=== PATIENT | female | born 1930 | race Caucasian/White ===

== ENCOUNTER → 2018-04-06 | Outpatient (CLI) | payer MEDICARE, OTHER | LOC: M ADAMS 11:27 | DX: M25.551 Pain in right hip (principal) | CPT/HCPCS: 73502 ==

== ENCOUNTER 2018-11-26 02:57 | Emergency (ER) | payer MEDICARE, OTHER ==
[2018-11-26 03:29] LABS: BASO % 0.3 % (0.0-1.0); EOS # 0.1 10^3/uL (0.0-0.50); EOS % 1.6 % (0.0-3.0); HEMATOCRIT 36.6 % (36.0-47.0); HEMOGLOBIN 11.6 g/dl (12.0-15.5); LYMPH # 1.9 10^3/uL (1.5-4.5); LYMPH % 27.4 % (24.0-44.0); MEAN CORPUSCULAR HEMOGLOBIN 29.8 pg (27.0-33.0); MEAN CORPUSCULAR HGB CONC 31.7 g/dl (32.0-36.5); MEAN CORPUSCULAR VOLUME 94.1 fl (80.0-96.0); MONO # 0.7 10^3/uL (0.0-0.8); MONO % 10.2 % (0.0-5.0); NEUTROPHILS # 4.3 10^3/uL (1.8-7.7); NEUTROPHILS % 60.2 % (36.0-66.0); PLATELET COUNT, AUTOMATED 186 10^3/uL (150-450); RED BLOOD COUNT 3.89 10^6/uL (4.00-5.40); WHITE BLOOD COUNT 7.1 10^3/uL (4.0-10.0)
[2018-11-26 04:23] LABS: BLOOD UREA NITROGEN 33 MG/DL (7-18); CALCIUM LEVEL 9.2 MG/DL (8.8-10.2); CARBON DIOXIDE LEVEL 27 MEQ/L (21-32); CHLORIDE LEVEL 109 MEQ/L (98-107); CPK CREATINE PHOSPHOKINASE 101 U/L (26-192); CREATININE FOR GFR 1.06 MG/DL (0.55-1.30); GLOMERULAR FILTRATION RATE 52.2 (>32); GLUCOSE, FASTING 94 MG/DL (70-100); MB/CK RELATIVE INDEX 1.09 (< OR =4); POTASSIUM SERUM 4.6 MEQ/L (3.5-5.1); SODIUM LEVEL 141 MEQ/L (136-145); TROPONIN I < 0.02 NG/ML (< 0.10)
[2018-11-26 04:57] LABS: NT-PRO BNP 286 PG/ML (<450)
--- NOTE | 2018-11-26 09:02 | REP ---
Chest one-view HISTORY: Chest pain Comparison: 07/24/2016 A calcified granuloma are present in the lungs. The cardiac silhouette is enlarged. The pulmonary vasculature is normal in appearance. Impression: 1. Old granulomatous disease. 2. Cardiomegaly. Electronically Signed by Trent Robin MD 11/26/2018 08:54 A
[2018-11-26 09:45] LABS: CK-MB VALUE MASS < 1.0 NG/ML (<3.6); CPK CREATINE PHOSPHOKINASE 81 U/L (26-192); MB/CK RELATIVE INDEX 1.23 (< OR =4); TROPONIN I < 0.02 NG/ML (< 0.10)
[2018-11-26 10:39] VITALS: BP 170/77
--- NOTE | 2018-11-26 13:09 | ECGEPIP ---
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
--- NOTE | 2018-11-26 13:10 | ECGEPIP ---
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
== END 2018-11-26 10:50 | disposition home or self-care (01) ==
LOC: EDBD 02:57 → M ED 02:57
DX: R07.9 Chest pain, unspecified (principal); R06.02 Shortness of breath; I51.9 Heart disease, unspecified; I25.10 Atherosclerotic heart disease of native coronary artery without angina pectoris; I95.9 Hypotension, unspecified

== ENCOUNTER 2019-03-24 23:39 | Emergency (ER) | payer MEDICARE, OTHER ==
[~2019-03-24] VITALS: Ht 152.4 cm; Wt 46.8 kg
[2019-03-25] MEDS ORDERED: no home meds (00:32)
[2019-03-25 00:37] LABS: BASO % 0.5 % (0.0-1.0); EOS # 0.1 10^3/uL (0.0-0.50); EOS % 1.1 % (0.0-3.0); HEMATOCRIT 33.2 % (36.0-47.0); HEMOGLOBIN 10.7 g/dl (12.0-15.5); LYMPH # 1.3 10^3/uL (1.5-4.5); LYMPH % 23.3 % (24.0-44.0); MEAN CORPUSCULAR HEMOGLOBIN 31.2 pg (27.0-33.0); MEAN CORPUSCULAR HGB CONC 32.2 g/dl (32.0-36.5); MEAN CORPUSCULAR VOLUME 96.8 fl (80.0-96.0); MONO # 0.5 10^3/uL (0.0-0.8); MONO % 8.8 % (0.0-5.0); NEUTROPHILS # 3.8 10^3/uL (1.8-7.7); NEUTROPHILS % 66.1 % (36.0-66.0); PLATELET COUNT, AUTOMATED 157 10^3/uL (150-450); RED BLOOD COUNT 3.43 10^6/uL (4.00-5.40); WHITE BLOOD COUNT 5.7 10^3/uL (4.0-10.0)
[2019-03-25] MEDS ORDERED: ONDANSETRON 4MG/2ML VIAL (J2405) IV ONE (00:45)
[2019-03-25] MEDS ORDERED: ACETAMINOPHEN TAB 650MG DOSE (2X325MG) PO ONE (00:45)
[2019-03-25 00:54] LABS: INR 1.07; PROTHROMBIN TIME 13.6 SECONDS (11.8-14.0)
[2019-03-25 00:55] LABS: PARTIAL THROMBOPLASTIN TIME 26.3 SECONDS (25.0-38.4)
[2019-03-25 01:08] LABS: BLOOD UREA NITROGEN 39 MG/DL (7-18); CALCIUM LEVEL 9.1 MG/DL (8.8-10.2); CARBON DIOXIDE LEVEL 27 MEQ/L (21-32); CHLORIDE LEVEL 109 MEQ/L (98-107); CK-MB VALUE MASS < 1.0 NG/ML (<3.6); CPK CREATINE PHOSPHOKINASE 82 U/L (26-192); CREATININE FOR GFR 1.43 MG/DL (0.55-1.30); GLUCOSE, FASTING 99 MG/DL (70-100); MB/CK RELATIVE INDEX 1.22 (< OR =4); POTASSIUM SERUM 4.6 MEQ/L (3.5-5.1); SODIUM LEVEL 141 MEQ/L (136-145); TROPONIN I < 0.02 NG/ML (< 0.10)
--- NOTE | 2019-03-25 01:12 | REPVR ---
EXAM: CT Head Without Contrast EXAM DATE/TIME: 03/25/2019 12:43 AM CLINICAL HISTORY: 88 years old, female; Injury or trauma; Fall; Initial encounter; Concussion / head injury TECHNIQUE: Imaging protocol: Computed tomography images of the head without contrast. Radiation optimization: All CT scans at this facility use at least one of these dose optimization techniques: automated exposure control; mA and/or kV adjustment per patient size (includes targeted exams where dose is matched to clinical indication); or iterative reconstruction. COMPARISON: CT Head without contrast 07/24/2016 1:35 PM FINDINGS: Brain: Patchy areas of hypoattenuation in the periventricular and subcortical white matter, consistent with chronic small vessel ischemic disease. No CT evidence of acute intracranial hemorrhage or acute territorial infarction. No significant mass effect or midline shift. Basal cisterns patent. Ventricles: Prominence of the cortical sulci, cisterns and ventricular system, consistent with cerebral and cerebellar volume loss. Bones/joints: No acute osseous abnormality. Sinuses: Minimal ethmoid mucosal thickening. Mastoid air cells: Grossly unremarkable. Soft tissues: Grossly unremarkable. IMPRESSION: 1. No CT evidence of acute intracranial pathology. 2. Additional findings, as above. Electronically signed by: Dakota Hernandez On 03/25/2019 01:11:41 AM
[2019-03-25] MEDS ORDERED: NS 500 ML IV ONE (03:00)
[2019-03-25 07:12] LABS: CK-MB VALUE MASS < 1.0 NG/ML (<3.6); CPK CREATINE PHOSPHOKINASE 64 U/L (26-192); MB/CK RELATIVE INDEX 1.56 (< OR =4); TROPONIN I 0.02 NG/ML (< 0.10)
--- NOTE | 2019-03-25 07:34 | REP ---
Portable chest, 12:53 a.m., single AP view with the patient sitting: Comparison is 07/24/2016. There are multiple small lung nodules bilaterally, unchanged, likely granulomas. There are no acute infiltrates or pleural effusions. Cardiac size is upper normal. The stephanie, mediastinum, skeletal structures are unremarkable. Impression: There are no acute cardiopulmonary findings. There are stable small lung nodules, likely granulomas. Electronically Signed by Kadeem Amezquita MD 03/25/2019 07:26 A
[2019-03-25 08:19] VITALS: BP 179/74
--- NOTE | 2019-03-25 13:40 | ECGEPIP ---
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
== END 2019-03-25 09:59 | disposition home or self-care (01) ==
LOC: EDBD 23:39 → M ED 23:39
DX: R07.9 Chest pain, unspecified (principal); R91.8 Other nonspecific abnormal finding of lung field
CPT/HCPCS: 36415; 70450; 71045; 80048; 81001; 82550; 82553; 84443; 84484; 85025; 85610; 85730; 93005; 93041; 94760; 96361; 96374; 99285; J2405

== ENCOUNTER → 2019-04-19 | Outpatient (REF) | payer MEDICARE, OTHER ==
[~2019-04-19] MED LIST: no home meds
[2019-04-19 15:18] LABS: BASO % 0.4 % (0.0-1.0); EOS % 0.4 % (0.0-3.0); HEMATOCRIT 36.8 % (36.0-47.0); HEMOGLOBIN 11.5 g/dl (12.0-15.5); LYMPH % 17.4 % (24.0-44.0); MEAN CORPUSCULAR HEMOGLOBIN 30.7 pg (27.0-33.0); MEAN CORPUSCULAR HGB CONC 31.3 g/dl (32.0-36.5); MEAN CORPUSCULAR VOLUME 98.1 fl (80.0-96.0); MONO # 0.5 10^3/uL (0.0-0.8); MONO % 8.3 % (0.0-5.0); NEUTROPHILS # 4.2 10^3/uL (1.5-8.5); NEUTROPHILS % 73.1 % (36.0-66.0); PLATELET COUNT, AUTOMATED 163 10^3/uL (150-450); RED BLOOD COUNT 3.75 10^6/uL (4.00-5.40); WHITE BLOOD COUNT 5.7 10^3/uL (4.0-10.0)
[2019-04-19 15:53] LABS: BILIRUBIN,TOTAL 0.5 MG/DL (0.2-1.0); CALCIUM LEVEL 9.7 MG/DL (8.8-10.2); CREATININE FOR GFR 1.64 MG/DL (0.55-1.30); GLOMERULAR FILTRATION RATE 31.5 (>32); PERCENT SATURATION 29.7 % (13.2-45.0); POTASSIUM SERUM 4.5 MEQ/L (3.5-5.1); TOTAL PROTEIN 7.2 GM/DL (6.4-8.2)
== END ==
LOC: M LABDRWAD 14:32
PROVIDERS: ATTEND Physician Assistant
DX: R42 Dizziness and giddiness (principal)

== ENCOUNTER 2019-05-26 08:12 | Inpatient (IN) | payer MEDICARE, OTHER ==
[~2019-05-26] VITALS: Ht 157.5 cm; Wt 45.5 kg
[2019-05-26] MEDS ORDERED: NS 500 ML IV ONE (08:30)
--- NOTE | 2019-05-26 08:54 | REP ---
Single view chest: 05/26/2019. Indication: Abdominal pain. Comparison: 03/25/2019. Findings: Numerous bilateral granulomata are noted. No pulmonary air space consolidations are present. There is no pleural effusion or pneumothorax. The cardiac silhouette is unremarkable. Impression: No acute cardiopulmonary process. Electronically Signed by Basil Castellon DO 05/26/2019 08:45 A
[2019-05-26 09:26] LABS: BASO % 0.5 % (0.0-1.0); EOS % 0.4 % (0.0-3.0); HEMATOCRIT 34.3 % (36.0-47.0); LYMPH # 0.8 10^3/uL (1.5-5.0); LYMPH % 13.7 % (24.0-44.0); MEAN CORPUSCULAR HGB CONC 32.1 g/dl (32.0-36.5); MEAN CORPUSCULAR VOLUME 96.6 fl (80.0-96.0); MONO # 0.4 10^3/uL (0.0-0.8); MONO % 7.8 % (0.0-5.0); NEUTROPHILS # 4.3 10^3/uL (1.5-8.5); NEUTROPHILS % 77.4 % (36.0-66.0); PLATELET COUNT, AUTOMATED 182 10^3/uL (150-450); RED BLOOD COUNT 3.55 10^6/uL (4.00-5.40); WHITE BLOOD COUNT 5.6 10^3/uL (4.0-10.0)
[2019-05-26 09:45] LABS: ALBUMIN 3.4 GM/DL (3.2-5.2); ALT/SGPT 16 U/L (12-78); AMYLASE 104 U/L (25-115); BILIRUBIN,DIRECT 0.1 MG/DL (0.0-0.2); BILIRUBIN,TOTAL 0.5 MG/DL (0.2-1.0); BLOOD UREA NITROGEN 27 MG/DL (7-18); CALCIUM LEVEL 9.2 MG/DL (8.8-10.2); CARBON DIOXIDE LEVEL 29 MEQ/L (21-32); CHLORIDE LEVEL 110 MEQ/L (98-107); CK-MB VALUE MASS < 1.0 NG/ML (<3.6); CPK CREATINE PHOSPHOKINASE 68 U/L (26-192); CREATININE FOR GFR 1.38 MG/DL (0.55-1.30); GLOMERULAR FILTRATION RATE 38.5 (>32); GLUCOSE, FASTING 90 MG/DL (70-100); LIPASE 163 U/L (73-393); MB/CK RELATIVE INDEX 1.47 (< OR =4); POTASSIUM SERUM 3.8 MEQ/L (3.5-5.1); SODIUM LEVEL 144 MEQ/L (136-145); TROPONIN I < 0.02 NG/ML (< 0.10)
[2019-05-26] MEDS ORDERED: ISOVUE-370 76% 100ML VIAL (Q9967) As Ordered ONE (09:57)
[2019-05-26] MEDS ORDERED: LEVO50TA5 PO (09:59)
--- NOTE | 2019-05-26 10:43 | REP ---
CT brain: 05/26/2019. Indication: Head trauma. Comparison: 03/25/2019. Technique: Unenhanced axial CT images of the brain were obtained from skull base to vertex. Findings: There is no acute intracranial hemorrhage, acute cortical infarction, mass effect, hydrocephalus or acute calvarial fracture. Age-related volume loss is noted diffusely. There are a few small patchy areas of hypoattenuation throughout the white matter of the cerebral hemispheres most consistent with chronic small vessel disease. Impression: No acute intracranial process. Electronically Signed by Basil Castellon DO 05/26/2019 10:34 A
--- NOTE | 2019-05-26 10:51 | REP ---
CT cervical spine: 05/26/2019. Indication: Cervical spine trauma. Comparison: None. Technique: Axial unenhanced CT images of the cervical spine were obtained with coronal and sagittal reconstructions provided. Findings: Slightly exaggerated lordosis is noted. There is no significant disc space widening. There is no acute fracture, subluxation or dislocation. No hemorrhage or additional significant acute post traumatic sequelae are detected within the spinal canal. There are no concerning erosive lesions of the visualized cervical spine. There are a few small pulmonary nodules within the visualized apices at least one of which is calcified and possibly represent granulomas. Correlation with chest CT may be helpful. Impression: No acute post traumatic osseous injuries of the cervical spine. Electronically Signed by Basil Castellon DO 05/26/2019 10:43 A
--- NOTE | 2019-05-26 11:05 | REP ---
CT ABDOMEN AND PELVIS WITH IV CONTRAST: TECHNIQUE: Axial contrast enhanced images from the lung bases to the pubic symphysis using 100 mL Isovue 370 intravenous contrast material with multiplanar reformations. Visualized lung bases demonstrate calcified granulomas. Liver demonstrates multiple cysts. The largest is in the right dome measuring approximately 6 cm in maximum diameter. Common bile duct is dilated up to 11 mm. Gallbladder is grossly unremarkable. Spleen is unremarkable as are the adrenal glands and pancreas. Extrarenal pelvis is seen bilaterally with a posterior left renal cyst versus dilated calyx with overlying cortical thinning having a diameter of about 3 cm. There is no abdomen aortic aneurysm with moderate atherosclerotic calcifications. There is no adenopathy. There is no free air or free fluid. There is no bowel wall thickening. There is no pelvic mass. The urinary bladder is grossly unremarkable. Visualized osseous structures appear intact with diffuse degenerative changes of the spine. IMPRESSION: No acute abnormality is detected. Multiple innumerable liver cysts. Calcified granulomas in each lung base. Prominent common bile duct 11 mm in diameter. I cannot exclude stricture at the distal end of the common bile duct. Electronically Signed by Kadeem Aponte MD 05/28/2019 12:42 A
[2019-05-26] MEDS ORDERED: VESI5TAB2 PO (12:20)
[2019-05-26] MEDS ORDERED: amLODIPine 5 MG TAB PO ONE (13:00)
--- NOTE | 2019-05-26 13:18 | HPEPDOC ---
General Date of Admission 05/26/2019 Date of Service: May 26, 2019 Chief Complaint The patient is a 88-year-old female Who presented to emergency room with complaint of abdominal pain associated with nausea and vomiting. History of Present Illness Patient is an 88-year-old female with a past medical history of dementia, CKD 3, and overactive bladder and recent dental problems, was pre sented to the emergency room after experiencing a one day history of nausea and vomiting. Patient reported that yesterday she began to experience episodes of nausea and vomiting associated with diffuse abdominal discomfort. Patient lives alone and is a poor historian. Patient son was present at the bedside was reported that he went to go help after she had gone to a neighbor for assistance. He found that she had vomited twice this morning around 6:30 AM. . He described the vomitus without having any blood. Currently patient denies any headache or any active nausea or vomiting. Denies chest pain, shortness of breath, palpitations, does not experience any active abdominal pain. Denies once patient, diarrhea, or urinary discomfort. Patient does follow with an outpatient provider who has suggested that the patient should require 24. 7 supervision and possible intermediate placement. Patient has reported that she has experience a weight loss of approximately 8 pounds over a few months and has Home Medications Scheduled Solifenacin Succinate (Vesicare) 5 Mg Tablet, 5 MG PO DAILY, (Reported) Allergies Coded Allergies: No Known Allergies (Unverified , 03/25/19) Past Medical History Medical History Dementia, CKD3, and overactive bladder and recent dental problems (Follows w/ Dr. Church, Dr. Evans, Dr. 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 Review of Systems Other systems 10 point review of systems complete, all negative otherwise stated in HPI Vital Signs - Vitals: BP 187/86, HR 67, RR 18, Sat 99%RA, Temp 99.3F - General: Lying in bed, No acute distress, Speaking in full sentences, Awake / Alert - HEENT: NC, AT, PERRLA, EOMI - CVS: RRR, +S1S2 - Lungs: Fair air entry bilaterally, No appreciable wheezing / rales / rhonchi - Abdomen: Soft, Non-distended, Non-tender - Extremities: No lower extremity edema, No calf tenderness - Neuro: No focal motor or sensory deficit - Skin: No visible rashes Laboratory Data Labs 24H Laboratory Tests 2 05/26/19 08:28: Urine Color YELLOW, Urine Appearance CLEAR, Urine pH 7.0, Urine Specific [place] 1.018, Urine Protein NEGATIVE, Urine Glucose (UA) NEGATIVE, Urine Ketones TRACEH, Urine Blood NEGATIVE, Urine Nitrite NEGATIVE, Urine Bilirubin NEGATIVE, Urine Urobilinogen 0.2, Urine Leukocyte Esterase NEGATIVE, Urine WBC (Auto) 0, Urine RBC (Auto) 1, Urine Hyaline Casts (Auto) 0, Urine Bacteria (Auto) NEGATIVE, Urine Squamous Epithelial Cells 0, Urine Sperm (Auto) 05/26/19 09:11: Immature Granulocyte % (Auto) 0.2, Neutrophils (%) (Auto) 77.4H, Lymphocytes (%) (Auto) 13.7L, Monocytes (%) (Auto) 7.8H, Eosinophils (%) (Auto) 0.4, Basophils (%) (Auto) 0.5, Neutrophils # (Auto) 4.3, Lymphocytes # (Auto) 0.8L, Monocytes # (Auto) 0.4, Eosinophils # (Auto) 0.0, Basophils # (Auto) 0.0, Nucleated Red Blood Cells % (auto) 0.0, Anion Gap 5L, Glomerular Filtration Rate 38.5, Lactic Acid Level 1.0, Calcium Level 9.2, Total Bilirubin 0.5, Direct Bilirubin 0.1, Aspartate Amino Transf (AST/SGOT) 15, Alanine Aminotransferase (ALT/SGPT) 16, Alkaline Phosphatase 18L, Total Creatine Kinase 68, Creatine Kinase MB < 1.0, Creatine Kinase MB Relative Index 1.47, Troponin I < 0.02, Total Protein 7.0, Albumin 3.4, Albumin/Globulin Ratio 0.94L, Amylase Level 104, Lipase 163 CBC/BMP Laboratory Tests 05/26/19 09:11 Microbiology Microbiology 05/26/19 Blood Culture, Received Pending 05/26/19 Respiratory Virus Panel (PCR) (ROBYN) - Final, Complete 05/26/19 Blood Culture, Received Pending Plan / VTE VTE Prophylaxis Ordered?: Yes Plan Plan Abdominal pain / Nausea / Vomiting - possibly 2/2 gastroenteritis - Currently patient has reported resolution of her abdominal pain and nausea and vomiting - Physical remains benign; hemodynamically stable and afebrile - No leukocytosis; Normal Amylase / Lipase - CT abdomen / pelvis 05/26: No acute abnormality is detected. Multiple innumerable liver cysts. Calcified granulomas in each lung base. Prominent common bile duct 11 mm in diameter. I cannot exclude stricture at the distal end of the common bile duct. - Will check US abdomen - c/w Supportive care for now Liver cysts - See above Reported falls at home - Patient and family have reported that she has fallen several times while at home - Currently patient denies any significant pain - CT head 05/26: No acute intracranial process. - CT cervical spine 05/26: No acute post traumatic osseous injuries of the cervical spine. - c/w Tylenol PRN - Patient will work with PT / OT Hypertensive urgency - Patient has reported that at home her blood pressures typically on the lower side of normal - Clinical impression emergency room was found to be in systolics of 180 - Patient remains a symptomatic - Will start Amlodipine Placement - Patient has a history of dementia that appears to be progressive - Patient describes that at home she has been wandering and feels that she is unable to care for herself while at home - Will get PFS consultation for likely placement CKD3 - Creatinine appears to be at baseline Overactive bladder - c/w Solifenacin Recent dental problems - Follows w/ Dr. Church, Dr. Evans, Dr. Scott - Will have outpatient follow-up DVT prophylaxis - Will start Heparin JOSE ANTONIO MOBLEY MD May 26, 2019 13:18
[2019-05-26] MEDS: HEPARIN SOD (PORCINE) 5000 UNITS/ML VIAL SC SCH ×2 (16:00→21:35)
[2019-05-26 16:15] VITALS: BP 154/79
--- NOTE | 2019-05-26 17:23 | ECGEPIP ---
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
--- NOTE | 2019-05-26 17:31 | REP ---
HISTORY: Liver cyst. Multiple ultrasonographic images of the liver show multiple anechoic structures of various sizes. The largest on the left is 2.8 x 1.8 x 2.5 cm and the largest on the right is 2.7 x 3.7 x 5.9 cm, all exhibiting posterior wall enhancement and increased through transmission. There is no intrahepatic ductal dilatation. The common bile duct measures 11 mm. The gallbladder is unremarkable in appearance. The spleen has a maximal dimension of 6.6 cm and tiny echogenic foci are seen within the spleen consistent with chronic granulomatous changes. There are no perisplenic abnormalities. The imaged portion of the pancreas is unremarkable. The right kidney measures 10.3 x 3.7 x 3.6 cm and is within normal limits. There is a probable extrarenal pelvis. The left kidney measures 9.4 x 3.3 x 4.2 cm. In the interpolar region of the left kidney there is a 2 x 2.4 x 1.7 cm sized echogenic lesion which is not consistent with a completely simple cyst. There is no free fluid in the abdomen. IMPRESSION: 1. Hepatic cysts. 2. Dilatation of the common bile duct. 3. 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 4. Lesion in the left kidney which is not ultrasonographically consistent with a simple cyst. Previous CT scan of 05/26/2019 showed the aforementioned abnormalities and the left renal cystic lesion had density Hounsfield unit readings too high to be a simple cyst. Urological consultation is recommended since neoplastic change cannot be ruled out. Electronically Signed by Praveen Flores DO 05/27/2019 11:48 A
[2019-05-26] MEDS: SOLIFENACIN 5 MG TAB PO SCH (17:49)
[2019-05-26 22:00] VITALS: BP 153/73
[2019-05-27 06:00] VITALS: BP 151/73
[2019-05-27] MEDS: HEPARIN SOD (PORCINE) 5000 UNITS/ML VIAL SC SCH ×3 (06:01→21:25)
[2019-05-27 06:54] LABS: BASO % 0.4 % (0.0-1.0); EOS # 0.1 10^3/uL (0.0-0.5); HEMATOCRIT 35.1 % (36.0-47.0); HEMOGLOBIN 11.3 g/dl (12.0-15.5); LYMPH # 1.6 10^3/uL (1.5-5.0); LYMPH % 19.4 % (24.0-44.0); MEAN CORPUSCULAR HGB CONC 32.2 g/dl (32.0-36.5); MEAN CORPUSCULAR VOLUME 96.2 fl (80.0-96.0); MONO # 0.7 10^3/uL (0.0-0.8); MONO % 8.4 % (0.0-5.0); NEUTROPHILS # 5.7 10^3/uL (1.5-8.5); NEUTROPHILS % 70.6 % (36.0-66.0); PLATELET COUNT, AUTOMATED 179 10^3/uL (150-450); RED BLOOD COUNT 3.65 10^6/uL (4.00-5.40)
[2019-05-27 07:16] LABS: CALCIUM LEVEL 9.2 MG/DL (8.8-10.2); CREATININE FOR GFR 1.12 MG/DL (0.55-1.30); POTASSIUM SERUM 3.8 MEQ/L (3.5-5.1)
[2019-05-27] MEDS: amLODIPine 5 MG TAB PO SCH (08:08)
[2019-05-27] MEDS: SOLIFENACIN 5 MG TAB PO SCH (09:40)
[2019-05-27 14:00] VITALS: BP 141/72
--- NOTE | 2019-05-27 14:17 | IPNPDOC ---
Date Seen The patient was seen on 05/27/19. Progress Note SUBJECTIVE: Pt reports significant improvement in her pain, N/V. She denied any pain, episodes of nausea or vomiting, chest pain, SOB, or palpitations. Denies any difficulty urinating or urinary symptoms. She has not had a bowel movement since her admission but she reports this is normal for her. OBJECTIVE PHYSICAL EXAMINATION: VITAL SIGNS: Please see below. GENERAL: Patient is pleasant and cooperative, sitting comfortably at bedside, alert and oriented in no acute distress HEENT: Normocephalic, atraumatic. No scleral icterus. PERRLA. EOMI. no nasal discharge. No tracheal deviation. No obvious swollen lymph nodes CARDIOVASCULAR: Regular rate and rhythm. Normal S1 and S2. No murmurs, gallops or rubs noted RESPIRATORY: Lungs clear to auscultation bilaterally. ABDOMINAL:. No obvious lesions noted. Normal bowel sounds in all 4 quadrants. No pain, tenderness, guarding or rigidity EXTREMITIES:. 2/4 pulses noted throughout. No leg swelling or tenderness NEUROLOGICAL: A&O x3. Spontaneous movements of all extremities. No focal deficits noted PSYCHOLOGICAL: Mood and affect were appropriate LABORATORY DATA, MICROBIOLOGY: Please see below. Imagin05/26/19 chest x-ray: No acute cardiopulmonary process 05/26/19 abdomen/pelvis CT: No acute abnormality detected. Multiple innumerable liver cysts. Calcified granulomas in each lung base. Prominent common bile duct 11 mm in diameter. Cannot exclude stricture at distal end of common bile duct 05/26/[address]: No acute intracranial process 05/26/[address]: No acute posttraumatic osseous injuries of the cervical spine 05/26/19 abdomen US: Hepatic cysts. Dilated patient of the common bile duct. 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 Left renal lesion not ultrasonographically consistent with a simple cyst. Previous CT showed HU readings too high to be a simple cyst. Urological consultation recommended DVT prophylaxis ordered?: Heparin 5000 units SC every 8H ASSESSMENT AND PLAN: Selena Mckeon is an 88-year-old female with a past medical history of dementia, CKD3 and overactive bladder, presenting after experiencing 1 day history of nausea and vomiting. PROBLEMS: 1. Abdominal Pain + N/V -Resolved 2. 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 Biopsy 3. Liver Cysts: -No acute abnormality detected on CT -Supportive care for now 4. Reported Falls At home - Currently patient denies any significant pain - c/w Tylenol PRN - OT did not clear patient to return home and recommends assisted care. -Discuss with Pt's son and consider Placement 5.HTN Urgency -Pt remains asymptomatic -continue amlodipine 6. Placement -See Above 7.CKD3 -Creatinine at baseline 8.Overactive Bladder -c/w Solifenacin 9.Recent dental problems - Follows w/ Dr. Church, Dr. Evans, Dr. Scott - Will have outpatient follow-up 10. DVT prophylaxis - Will start Heparin DISPOSITION: Pending placement most likely VS, I&O, 24H, Fishbone Vital Signs/I&O Vital Signs Date Time Temp Pulse Resp B/P (MAP) Pulse Ox O2 Delivery O2 Flow Rate FiO2 05/27/19 08:08 85 151/73 05/27/19 06:00 97.9 16 96 Room Air I&O- Last 24 Hours up to 6 AM 05/27/19 06:00 Intake Total 1100 ml Output Total 400 ml Balance 700 ml Laboratory Data 24H LABS Laboratory Tests 2 05/27/19 06:19: Immature Granulocyte % (Auto) 0.2, Neutrophils (%) (Auto) 70.6H, Lymphocytes (%) (Auto) 19.4L, Monocytes (%) (Auto) 8.4H, Eosinophils (%) (Auto) 1.0, Basophils (%) (Auto) 0.4, Neutrophils # (Auto) 5.7, Lymphocytes # (Auto) 1.6, Monocytes # (Auto) 0.7, Eosinophils # (Auto) 0.1, Basophils # (Auto) 0.0, Nucleated Red Blood Cells % (auto) 0.0, Anion Gap 5L, Glomerular Filtration Rate 49.0, Calcium Level 9.2, Magnesium Level 2.0 CBC/BMP Laboratory Tests 05/27/19 06:19 Microbiology Microbiology 05/26/19 Blood Culture - Preliminary, Resulted No growth after 24 hours . All specim... 05/26/19 Respiratory Virus Panel (PCR) (ROBYN) - Final, Complete 05/26/19 Blood Culture - Preliminary, Resulted No growth after 24 hours . All specim... GME ATTESTATION GME ATTESTATION My faculty preceptor for this patient encounter was physically present during the encounter and was fully available. All aspects of the patient interview, e xamination, medical decision making process, and medical care plan development were reviewed and approved by the faculty preceptor. The faculty preceptor is aware and concurs with the plan as stated in the body of this note and will attest to such by his/her cosignature. ATTENDING NOTE I, Elsa Borjas, have independently examined this patient and performed my own physical exam, as well as reviewed the documentation and edited where necessary. I have discussed in detail with the resident / student the findings and plan of treatment as documented by the resident / student and edited their note. I agree with their findings and treatment plan and have edited their documentation. I will continue to follow the patient during this hospital stay. KORY BARRIGA OMS-3 May 27, 2019 14:17 ELSA BORJAS MD May 27, 2019 15:31 MARIAM UMANA MD May 27, 2019 15:38
[2019-05-27 22:00] VITALS: BP 151/78
[2019-05-28 06:00] VITALS: BP 148/72
[2019-05-28] MEDS: HEPARIN SOD (PORCINE) 5000 UNITS/ML VIAL SC SCH (06:00)
[2019-05-28] MEDS: SOLIFENACIN 5 MG TAB PO SCH (08:16)
[2019-05-28] MEDS: amLODIPine 5 MG TAB PO SCH (08:17)
--- NOTE | 2019-05-28 10:37 | IPNPDOC ---
Date Seen The patient was seen on 05/28/19. Progress Note SUBJECTIVE: Patient reports complete resolution of all her symptoms. She denies any nausea, vomiting, abdominal pain, dizziness, weakness, chest pain or shortness of breath. She is aware and understands that she requires assisted living and is comfortable being discharged when placement has been established. OBJECTIVE PHYSICAL EXAMINATION: VITAL SIGNS: Please see below. GENERAL: Patient is pleasant and cooperative, sitting up comfortably in her bed, alert and oriented in no acute distress HEENT: Normocephalic, atraumatic. No scleral icterus. PERRLA. EOMI. no nasal discharge. No tracheal deviation. No obvious swollen lymph nodes CARDIOVASCULAR: Regular rate and rhythm. Normal S1 and S2. No murmurs, gallops or rubs noted RESPIRATORY: Lungs clear to auscultation bilaterally. ABDOMINAL:. No obvious lesions noted. Normal bowel sounds in all 4 quadrants. No pain, tenderness, guarding or rigidity EXTREMITIES:. 2/4 pulses noted throughout. No leg swelling or tenderness NEUROLOGICAL: A&O x3. Spontaneous movements of all extremities. No focal deficits noted PSYCHOLOGICAL: Mood and affect were appropriate LABORATORY DATA, MICROBIOLOGY: Please see below. Imagin05/26/19 chest x-ray: No acute cardiopulmonary process 05/26/19 abdomen/pelvis CT: No acute abnormality detected. Multiple innumerable liver cysts. Calcified granulomas in each lung base. Prominent common bile duct 11 mm in diameter. Cannot exclude stricture at distal end of common bile duct 05/26/[address]: No acute intracranial process 05/26/[address]: No acute posttraumatic osseous injuries of the cervical spine 05/26/19 abdomen US: Hepatic cysts. Dilated patient of the common bile duct. 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 Left renal lesion not ultrasonographically consistent with a simple cyst. Previous CT showed HU readings too high to be a simple cyst. Urological consultation recommended DVT prophylaxis ordered?: Heparin 5000 units SC every 8H ASSESSMENT AND PLAN: Selena Mckeon is an 88-year-old female with a past medical history of dementia, CKD3 and overactive bladder, presenting after experiencing 1 day history of nausea and vomiting. PROBLEMS: 1. Abdominal Pain + N/V -Resolved 2. 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 Liver Cysts: -No acute abnormality detected on CT -Supportive care for now 4. Reported Falls At home - Currently patient denies any significant pain - c/w Tylenol PRN - OT did not clear patient to return home and recommends assisted care. -Pt is currently aware and agreed to assisted care 5.HTN Urgency -Pt remains asymptomatic -continue amlodipine 6. Placement -See Above 7.CKD3 -Creatinine at baseline 8.Overactive Bladder -c/w Solifenacin 9.Recent dental problems - Follows w/ Dr. Church, Dr. Evans, Dr. Scott - Will have outpatient follow-up 10. DVT prophylaxis - Will start Heparin DISPOSITION: Currently awaiting Placement - Will transition to ALC status VS, I&O, 24H, Fishbone Vital Signs/I&O Vital Signs Date Time Temp Pulse Resp B/P (MAP) Pulse Ox O2 Delivery O2 Flow Rate FiO2 05/28/19 08:17 78 149/92 05/28/19 06:00 97.8 16 95 Room Air I&O- Last 24 Hours up to 6 AM 05/28/19 06:00 Intake Total 600 ml Output Total 300 ml Balance 300 ml Laboratory Data Microbiology Microbiology 05/26/19 Blood Culture - Preliminary, Resulted No Growth after 48 hours. All Specime... 05/26/19 Respiratory Virus Panel (PCR) ([facility]) - Final, Complete 05/26/19 Blood Culture - Preliminary, Resulted No Growth after 48 hours. All Specime... GME ATTESTATION GME ATTESTATION My faculty preceptor for this patient encounter was physically present during the encounter and was fully available. All aspects of the patient interview, examination, medical decision making process, and medical care plan development were reviewed and approved by the faculty preceptor. The faculty preceptor is aware and concurs with the plan as stated in the body of this note and will attest to such by his/her cosignature. ATTENDING NOTE I, Elsa Borjas, have independently examined this patient and performed my own physical exam, as well as reviewed the documentation and edited where necessary. I have discussed in detail with the resident / student the findings and plan of treatment as documented by the resident / student and edited their note. I agree with their findings and treatment plan and have edited their documentation. I will continue to follow the patient during this hospital stay. KORY BARRIGA-3 May 28, 2019 10:37 ELSA BORJAS MD May 28, 2019 15:50 MARIAM UMANA MD May 28, 2019 18:16
[2019-05-28 14:57] VITALS: BP 140/119
[2019-05-28 15:00] VITALS: BP 140/80
[2019-05-28 16:22] VITALS: BP 134/63
[2019-05-28 22:00] VITALS: BP 135/60
[2019-05-29 06:00] VITALS: BP 131/60
[2019-05-29 06:58] LABS: BASO % 0.4 % (0.0-1.0); EOS # 0.1 10^3/uL (0.0-0.5); EOS % 1.1 % (0.0-3.0); HEMATOCRIT 34.6 % (36.0-47.0); HEMOGLOBIN 11.1 g/dl (12.0-15.5); LYMPH # 1.4 10^3/uL (1.5-5.0); LYMPH % 25.8 % (24.0-44.0); MEAN CORPUSCULAR HGB CONC 32.1 g/dl (32.0-36.5); MEAN CORPUSCULAR VOLUME 96.6 fl (80.0-96.0); MONO # 0.5 10^3/uL (0.0-0.8); MONO % 9.6 % (0.0-5.0); NEUTROPHILS # 3.4 10^3/uL (1.5-8.5); NEUTROPHILS % 62.7 % (36.0-66.0); PLATELET COUNT, AUTOMATED 159 10^3/uL (150-450); RED BLOOD COUNT 3.58 10^6/uL (4.00-5.40); WHITE BLOOD COUNT 5.3 10^3/uL (4.0-10.0)
[2019-05-29 07:45] LABS: CALCIUM LEVEL 9.3 MG/DL (8.8-10.2); CREATININE FOR GFR 1.01 MG/DL (0.55-1.30); GLOMERULAR FILTRATION RATE 55.2 (>32); MAGNESIUM LEVEL 2.1 MG/DL (1.8-2.4); POTASSIUM SERUM 3.8 MEQ/L (3.5-5.1)
[2019-05-29] MEDS: SOLIFENACIN 5 MG TAB PO SCH (09:43)
[2019-05-29] MEDS: amLODIPine 5 MG TAB PO SCH (09:43)
[2019-05-29 14:00] VITALS: BP 140/64
[2019-05-30 06:00] VITALS: BP 131/61
[2019-05-30] MEDS: SOLIFENACIN 5 MG TAB PO SCH (08:54)
[2019-05-30] MEDS: amLODIPine 5 MG TAB PO SCH (08:55)
[2019-05-31 06:00] VITALS: BP 107/57
[2019-05-31] MEDS: SOLIFENACIN 5 MG TAB PO SCH (08:49)
[2019-05-31] MEDS: amLODIPine 5 MG TAB PO SCH (08:49)
[2019-06-01 05:46] VITALS: BP 129/63
[2019-06-01] MEDS ORDERED: SENOKOT S TAB PO SCH (09:00)
[2019-06-01] MEDS: SOLIFENACIN 5 MG TAB PO SCH (09:04)
[2019-06-01 09:05] VITALS: BP 115/55
[2019-06-01] MEDS: amLODIPine 5 MG TAB PO SCH (09:05)
[2019-06-01] MEDS ORDERED: SENN-52 PO (09:55)
[2019-06-01] MEDS ORDERED: AMLO5TAB6 PO (09:55)
--- NOTE | 2019-06-01 17:37 | DS.PDOC ---
Discharge Summary General Date of Admission May 26, 2019 at 12:52 Date of Discharge June 01, 2019 Attending Physician: TONY BOX MD Discharge Summary PROCEDURES PERFORMED DURING STAY: None. ADMITTING DIAGNOSES: 1. Dementia. 2. CK D3. 3. Overactive bladder. 4. Nausea and vomiting DISCHARGE DIAGNOSES: 1. Dementia. 2. CK D3. COMPLICATIONS/CHIEF COMPLAINT: Metabolic Encephalopathy. HISTORY OF PRESENT ILLNESS: Patient is an 88-year-old female with a past medical history of dementia, CKD 3, and overactive bladder and recent dental problems, was presented to the emergency room after experiencing a one day history of nausea and vomiting. Patient reported that yesterday she began to experience episodes of nausea and vomiting associated with diffuse abdominal discomfort. Patient lives alone and is a poor historian. Patient son was present at the bedside was reported that he went to go help after she had gone to a neighbor for assistance. He found that she had vomited twice this morning around 6:30 AM. . He described the vomitus without having any blood. Currently patient denies any headache or any active nausea or vomiting. Denies c hest pain, shortness of breath, palpitations, does not experience any active abdominal pain. Denies once patient, diarrhea, or urinary discomfort. Patient does follow with an outpatient provider who has suggested that the patient should require 24. 7 supervision and possible long-term placement. Patient has reported that she has experience a weight loss of approximately 8 pounds over a few months and has HOSPITAL COURSE: The patient was admitted with complaint of abdominal pain, nausea and vomiting, most likely secondary to gastroenteritis. The patient lives alone at home and was found down by her neighbors. A CT scan of her abdomen was negative for any acute process other than a 2 x 2.4 x 1.7 cm echogenic lesion, not consistent completely with a simple cyst. The patient's family was presented with the opportunity for further workup of this lesion including referral to urology, which they declined. On hospital day 2, the patient no longer complained of nausea, vomiting and abdominal pain. Due to her inability to go home and take care of herself the patient was discharged to SNF facility at [facility]. DISCHARGE MEDICATIONS: Please see below. ALLERGIES: Please see below. PHYSICAL EXAMINATION ON DISCHARGE: VITAL SIGNS: Please see below. GENERAL: Patient is pleasant and cooperative, sitting up comfortably in her bed, alert and oriented in no acute distress HEENT: Normocephalic, atraumatic. No scleral icterus. PERRLA. EOMI. no nasal discharge. No tracheal deviation. No obvious swollen lymph nodes CARDIOVASCULAR: Regular rate and rhythm. Normal S1 and S2. No murmurs, gallops or rubs noted RESPIRATORY: Lungs clear to auscultation bilaterally. ABDOMINAL:. No obvious lesions noted. Normal bowel sounds in all 4 quadrants. No pain, tenderness, guarding or rigidity EXTREMITIES:. 2/4 pulses noted throughout. No leg swelling or tenderness NEUROLOGICAL: A&O x3. Spontaneous movements of all extremities. No focal deficits noted PSYCHOLOGICAL: Mood and affect were appropriate LABORATORY DATA: Please see below. IMAGING: CT ABD/PELVIS: IMPRESSION: No acute abnormality is detected. Multiple innumerable liver cysts. Calcified granulomas in each lung base. Prominent common bile duct 11 mm in diameter. I cannot exclude stricture at the distal end of the common bile duct. ABDOMEN US: 1. Hepatic cysts. 2. Dilatation of the common bile duct. 3. 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 4. Lesion in the left kidney which is not ultrasonographically consistent with a simple cyst. Previous CT scan of 05/26/2019 showed the aforementioned abnormalities and the left renal cystic lesion had density Hounsfield unit readings too high to be a simple cyst. Urological consultation is recommended since neoplastic change cannot be ruled out. PROGNOSIS: Fair ACTIVITY: As tolerated. DIET: As tolerated DISCHARGE PLAN: [facility] assisted facility DISPOSITION: [facility]. DISCHARGE INSTRUCTIONS: 1. Please follow-up with PCP as needed ITEMS TO FOLLOWUP ON ON OUTPATIENT: 1. None DISCHARGE CONDITION: Stable. Vital Signs/I&Os Vital Signs Date Time Temp Pulse Resp B/P (MAP) Pulse Ox O2 Delivery O2 Flow Rate FiO2 06/01/19 09:05 84 115/55 06/01/19 05:46 97.6 18 97 Room Air I&O- Last 24 Hours up to 6 AM 06/01/19 06:00 Intake Total 1330 ml Output Total 0 ml Balance 1330 ml Microbiology Microbiology 05/26/19 Blood Culture - Final, Complete NO GROWTH AFTER 5 DAYS 05/26/19 Respiratory Virus Panel (PCR) ([facility]) - Final, Complete 05/26/19 Blood Culture - Final, Complete NO GROWTH AFTER 5 DAYS Discharge Medications Scheduled Amlodipine Besylate (Amlodipine Besylate) 5 Mg Tablet, 5 MG PO DAILY Sennosides/Docusate Sodium (Senna Plus Tablet) 1 Each Tablet, 2 TAB PO DAILY Solifenacin Succinate (Vesicare) 5 Mg Tablet, 5 MG PO DAILY, (Reported) Allergies Coded Allergies: No Known Allergies (Unverified , 03/25/19) GME ATTESTATION GME ATTESTATION I saw and evaluated the patient. I agree with the findings and plan of care as documented in the documenters note. I spent 45 minutes coordinating this patient's discharge. MARIAM UMANA MD Jun 01, 2019 17:37 TONY BOX MD Jun 02, 2019 12:36
== END 2019-06-01 10:50 | DRG 392 ==
LOC: M ED 08:12 → M ED INP 12:52 → M MS5PR 16:15
PROVIDERS: ADMIT Internal Medicine; ATTEND Internal Medicine
DX: K52.9 Noninfective gastroenteritis and colitis, unspecified (principal); C64.1 Malignant neoplasm of right kidney, except renal pelvis; F03.90 Unspecified dementia, unspecified severity, without behavioral disturbance, psychotic disturbance, mood disturbance, and anxiety; N18.3 Chronic kidney disease, stage 3 (moderate); N32.81 Overactive bladder; K08.9 Disorder of teeth and supporting structures, unspecified; Z79.899 Other long term (current) drug therapy; Z90.79 Acquired absence of other genital organ(s); K76.89 Other specified diseases of liver; K83.9 Disease of biliary tract, unspecified; R29.6 Repeated falls; I16.0 Hypertensive urgency

== ENCOUNTER → 2019-06-08 | Outpatient (REF) ==
[~2019-06-08] MED LIST changes: +AMLO5TAB6 PO; +LEVO50TA5 PO; +SENN-52 PO; +VESI5TAB2 PO
[2019-06-08 12:39] LABS: HEMOGLOBIN 11.3 g/dl (12.0-15.5); MEAN CORPUSCULAR HEMOGLOBIN 30.4 pg (27.0-33.0); MEAN CORPUSCULAR HGB CONC 30.5 g/dl (32.0-36.5); MEAN CORPUSCULAR VOLUME 99.5 fl (80.0-96.0); PLATELET COUNT, AUTOMATED 252 10^3/uL (150-450); RED BLOOD COUNT 3.72 10^6/uL (4.00-5.40); WHITE BLOOD COUNT 6.1 10^3/uL (4.0-10.0)
[2019-06-08 12:53] LABS: CALCIUM LEVEL 9.4 MG/DL (8.8-10.2); CREATININE FOR GFR 1.15 MG/DL (0.55-1.30); GLOMERULAR FILTRATION RATE 47.5 (>32); POTASSIUM SERUM 3.8 MEQ/L (3.5-5.1)
== END ==
PROVIDERS: ATTEND Internal Medicine
DX: I10 Essential (primary) hypertension (principal)

== ENCOUNTER → 2019-08-11 | Outpatient (REF) | payer MEDICARE, OTHER ==
[2019-08-11 18:05] LABS: HEMATOCRIT 40.5 % (36.0-47.0); HEMOGLOBIN 12.2 g/dl (12.0-15.5); MEAN CORPUSCULAR HEMOGLOBIN 29.8 pg (27.0-33.0); MEAN CORPUSCULAR HGB CONC 30.1 g/dl (32.0-36.5); PLATELET COUNT, AUTOMATED 202 10^3/uL (150-450); RED BLOOD COUNT 4.09 10^6/uL (4.00-5.40); WHITE BLOOD COUNT 6.1 10^3/uL (4.0-10.0)
[2019-08-11 18:33] LABS: CALCIUM LEVEL 9.2 MG/DL (8.8-10.2); CREATININE FOR GFR 1.25 MG/DL (0.55-1.30); GLOMERULAR FILTRATION RATE 43.2 (>32); POTASSIUM SERUM 4.6 MEQ/L (3.5-5.1)
== END ==
PROVIDERS: ATTEND Internal Medicine
DX: R42 Dizziness and giddiness (principal)

== ENCOUNTER → 2019-10-09 | Outpatient (REF) | payer MEDICARE, OTHER ==
[2019-10-09 09:27] LABS: HEMATOCRIT 40.3 % (36.0-47.0); HEMOGLOBIN 12.7 g/dl (12.0-15.5); MEAN CORPUSCULAR HGB CONC 31.5 g/dl (32.0-36.5); PLATELET COUNT, AUTOMATED 177 10^3/uL (150-450); RED BLOOD COUNT 4.24 10^6/uL (4.00-5.40); WHITE BLOOD COUNT 6.4 10^3/uL (4.0-10.0)
[2019-10-09 10:02] LABS: CALCIUM LEVEL 9.4 MG/DL (8.8-10.2); CREATININE FOR GFR 1.21 MG/DL (0.55-1.30); GLOMERULAR FILTRATION RATE 44.8 (>32); POTASSIUM SERUM 3.9 MEQ/L (3.5-5.1)
== END ==
PROVIDERS: ATTEND Physician Assistant
DX: N39.0 Urinary tract infection, site not specified (principal)

== ENCOUNTER → 2019-11-30 | Outpatient (REF) | payer MEDICARE, OTHER ==
[2019-11-30 12:00] LABS: HEMATOCRIT 36.7 % (36.0-47.0); HEMOGLOBIN 11.6 g/dl (12.0-15.5); MEAN CORPUSCULAR HEMOGLOBIN 29.8 pg (27.0-33.0); MEAN CORPUSCULAR HGB CONC 31.6 g/dl (32.0-36.5); MEAN CORPUSCULAR VOLUME 94.3 fl (80.0-96.0); PLATELET COUNT, AUTOMATED 205 10^3/uL (150-450); RED BLOOD COUNT 3.89 10^6/uL (4.00-5.40); WHITE BLOOD COUNT 6.2 10^3/uL (4.0-10.0)
[2019-11-30 12:29] LABS: CALCIUM LEVEL 9.6 MG/DL (8.8-10.2); CREATININE FOR GFR 1.29 MG/DL (0.55-1.30); GLOMERULAR FILTRATION RATE 41.5 (>32); POTASSIUM SERUM 4.5 MEQ/L (3.5-5.1)
== END ==
PROVIDERS: ATTEND Internal Medicine
DX: R11.0 Nausea (principal); R25.9 Unspecified abnormal involuntary movements; R52 Pain, unspecified; Z87.440 Personal history of urinary (tract) infections

== ENCOUNTER → 2019-12-01 | Outpatient (REF) | payer MEDICARE, OTHER ==
[2019-12-01 11:57] LABS: BASO % 0.7 % (0.0-1.0); EOS # 0.1 10^3/uL (0.0-0.5); EOS % 1.4 % (0.0-3.0); HEMATOCRIT 40.2 % (36.0-47.0); HEMOGLOBIN 12.6 g/dl (12.0-15.5); LYMPH # 1.1 10^3/uL (1.5-5.0); LYMPH % 19.7 % (24.0-44.0); MEAN CORPUSCULAR HEMOGLOBIN 30.1 pg (27.0-33.0); MEAN CORPUSCULAR HGB CONC 31.3 g/dl (32.0-36.5); MEAN CORPUSCULAR VOLUME 95.9 fl (80.0-96.0); MONO # 0.6 10^3/uL (0.0-0.8); MONO % 10.2 % (0.0-5.0); NEUTROPHILS # 3.9 10^3/uL (1.5-8.5); NEUTROPHILS % 67.7 % (36.0-66.0); PLATELET COUNT, AUTOMATED 219 10^3/uL (150-450); RED BLOOD COUNT 4.19 10^6/uL (4.00-5.40); WHITE BLOOD COUNT 5.8 10^3/uL (4.0-10.0)
== END ==
PROVIDERS: ATTEND Internal Medicine
DX: R10.9 Unspecified abdominal pain (principal)

== ENCOUNTER → 2019-12-21 | Outpatient (REF) ==
[~2019-12-21] MED LIST changes: +AMLO1TAB24 PO; -AMLO5TAB6 PO
== END ==
PROVIDERS: ATTEND Internal Medicine
DX: Z03.818 Encounter for observation for suspected exposure to other biological agents ruled out (principal)

== ENCOUNTER → 2020-01-03 | Outpatient (REF) | payer MEDICARE, OTHER ==
[~2020-01-03] MED LIST changes: -AMLO1TAB24 PO; +AMLO5TAB6 PO
[2020-01-03 10:38] LABS: HEMATOCRIT 38.8 % (36.0-47.0); HEMOGLOBIN 12.2 g/dl (12.0-15.5); MEAN CORPUSCULAR HEMOGLOBIN 30.2 pg (27.0-33.0); MEAN CORPUSCULAR HGB CONC 31.4 g/dl (32.0-36.5); PLATELET COUNT, AUTOMATED 196 10^3/uL (150-450); RED BLOOD COUNT 4.04 10^6/uL (4.00-5.40); WHITE BLOOD COUNT 8.6 10^3/uL (4.0-10.0)
[2020-01-03 11:10] LABS: ALBUMIN 3.3 GM/DL (3.2-5.2); BILIRUBIN,TOTAL 0.5 MG/DL (0.2-1.0); CALCIUM LEVEL 9.4 MG/DL (8.8-10.2); CREATININE FOR GFR 1.04 MG/DL (0.55-1.30); GLOMERULAR FILTRATION RATE 53.2 (>32); POTASSIUM SERUM 4.2 MEQ/L (3.5-5.1)
--- NOTE | 2020-01-03 14:08 | REP ---
REASON: Atraumatic pelvic and right hip pain. AP pelvis and bilateral AP and frog-lateral views of the hip. The AP pelvis shows mild slightly asymmetric hip joint space narrowing. There is no buttressing. There is no fracture. Degenerative change is seen involving the imaged portion of the sacroiliac joints and spine. TWO VIEWS OF THE RIGHT HIP: FINDINGS: The hip joint space is symmetric and relatively well maintained. T here is no acute or destructive osseous lesion. TWO VIEWS OF THE LEFT HIP: FINDINGS: The hip joint space is symmetric and relatively well maintained. T here is no acute or destructive osseous lesion. IMPRESSION: Degenerative changes as described above. No fracture, dislocation or subluxation. Electronically Signed by Praveen Flores DO 01/03/2020 05:12 P
== END ==
PROVIDERS: ATTEND Physician Assistant
DX: M25.551 Pain in right hip (principal)

== ENCOUNTER → 2020-01-03 | Outpatient (CLI) | payer MEDICARE, OTHER | LOC: M RAD 12:05 | PROVIDERS: ATTEND Nurse Practitioner Adult Health | DX: R10.9 Unspecified abdominal pain (principal) ==

== ENCOUNTER → 2020-03-10 | Outpatient (CLI) | payer MEDICARE, OTHER ==
[~2020-03-10] MED LIST changes: +AMLO1TAB24 PO; -AMLO5TAB6 PO
--- NOTE | 2020-05-01 06:54 | REP ---
RIGHT HAND SERIES: HISTORY: Bruising and swelling. FINDINGS: 4-views of the right hand are performed. I see no acute fracture or dislocation. 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 There is mild radiocarpal joint space narrowing. There is mild narrowing of the intercarpal joints and distal interphalangeal joints. Small subchondral cyst is seen in the distal aspect of the fourth middle phalanx. IMPRESSION: Scattered arthritic change. No evidence of acute fracture or dislocation. MTDD
== END ==
LOC: M RAD 14:43
PROVIDERS: ATTEND Internal Medicine
DX: M79.641 Pain in right hand (principal)

== ENCOUNTER → 2020-04-04 | Outpatient (REF) | payer MEDICARE, OTHER ==
[2020-04-04 14:19] LABS: BASO % 0.3 % (0.0-1.0); EOS % 0.6 % (0.0-3.0); HEMATOCRIT 40.5 % (36.0-47.0); HEMOGLOBIN 12.6 g/dl (12.0-15.5); LYMPH % 16.5 % (24.0-44.0); MEAN CORPUSCULAR HEMOGLOBIN 31.5 pg (27.0-33.0); MEAN CORPUSCULAR HGB CONC 31.1 g/dl (32.0-36.5); MEAN CORPUSCULAR VOLUME 101.3 fl (80.0-96.0); MONO # 0.5 10^3/uL (0.0-0.8); MONO % 7.5 % (0.0-5.0); NEUTROPHILS # 4.7 10^3/uL (1.5-8.5); NEUTROPHILS % 74.9 % (36.0-66.0); PLATELET COUNT, AUTOMATED 215 10^3/uL (150-450); WHITE BLOOD COUNT 6.2 10^3/uL (4.0-10.0)
[2020-04-04 14:41] LABS: ALBUMIN 3.7 GM/DL (3.2-5.2); BILIRUBIN,TOTAL 0.3 MG/DL (0.2-1.0); CALCIUM LEVEL 9.8 MG/DL (8.8-10.2); CREATININE FOR GFR 1.23 MG/DL (0.55-1.30); GLOMERULAR FILTRATION RATE 43.9 (>32); POTASSIUM SERUM 4.5 MEQ/L (3.5-5.1); TOTAL PROTEIN 7.4 GM/DL (6.4-8.2)
== END ==
PROVIDERS: ATTEND Internal Medicine
DX: R10.9 Unspecified abdominal pain (principal)